=== PATIENT | male | born 2005 | race Caucasian/White ===

== ENCOUNTER 2024-10-13 22:30 | Emergency (ER) | payer OTHER ==
[~2024-10-13] VITALS: Ht 182.9 cm; Wt 79.5 kg
[2024-10-13 22:32] VITALS: BP 129/83; PULSE 71; TEMP 98.1; O2SAT 97
[2024-10-13] MEDS: dexamethasone sod phosphate 10mg/ml inj IM STA (23:02)
[2024-10-13 23:03] VITALS: RESP 16
[2024-10-13] MEDS: cyclobenzaprine 10mg tablet PO ONE (23:03)
[2024-10-13] MEDS: ketorolac trometh 30MG/ML vial 30 MG/ML VIAL IM ONE (23:03)
[2024-10-13] MEDS ORDERED: LIDO700A32 TOP (23:05)
[2024-10-13] MEDS ORDERED: CYCL-1 PO (23:05)
== END 2024-10-13 23:15 | disposition home or self-care (01) ==
LOC: ER 22:30
DX: S39.012A Strain of muscle, fascia and tendon of lower back, initial encounter (principal); Z88.0 Allergy status to penicillin; Z88.1 Allergy status to other antibiotic agents; X58.XXXA Exposure to other specified factors, initial encounter; Y93.89 Activity, other specified; Y92.89 Other specified places as the place of occurrence of the external cause; Y99.8 Other external cause status
CPT/HCPCS: 72100; 96372; 99284; J1100; J1885